=== PATIENT | female | born 1980 | race Caucasian/White ===

== ENCOUNTER 2017-08-16 14:34 | Emergency (ER) | payer BC ==
[2017-08-16 15:49] LABS: #Lymphocytes 1.9 thou/uL (1.20-3.40); #Monocytes 0.6 thou/uL (0.11-0.59); %Basophils 0.3 % (0.0-1.0); %Eosinophils 0.4 % (0.0-10.0); %Lymphocytes 21.7 % (21.0-51.0); %Monocytes 6.6 % (0.0-10.0); %Neutrophils 70.9 % (42.0-75.0); Mean Corpuscular HGB CONC 33.7 g/dL (32.0-36.0); Mean Corpuscular Hemoglobin 28.8 pg (27.0-31.0); Mean Corpuscular Volume 85.2 fl (81.0-99.0); Mean Platelet Volume 7.5 fL (7.4-10.4); Platelet Count 238 thou/uL (130-400); RBC Distribution Width 12.2 % (11.5-14.5); Red Blood Cell (RBC) Count 3.83 mill/uL (4.20-5.40); White Blood Cell (WBC) Count 8.5 thou/uL (4.8-10.8)
[2017-08-16 16:16] LABS: ALT (SGPT) 21 U/L (8-55); AST (SGOT) 19 U/L (5-34); Albumin 3.6 g/dL (3.5-5.0); Alkaline Phosphatase 94 U/L (40-150); Anion Gap 11 mmol/L (10-20); BUN (Urea Nitrogen) 9 mg/dL (7.0-18.7); Bilirubin, Total 0.5 mg/dL (0.2-1.2); CK (CPK) 36 U/L (29-168); Calc. Creatinine Clearance 0 mL/min (70-130); Calcium 9.1 mg/dL (7.8-10.44); Carbon Dioxide 24 mmol/L (22-29); Chloride 106 mmol/L (98-107); Estimated GFR-MDRD Greater than 90; Globulin 2.9 g/dL (2.4-3.5); Glucose 86 mg/dL (70-105); Potassium 3.9 mmol/L (3.5-5.1); Protein, Total 6.5 g/dL (6.0-8.3); Sodium 137 mmol/L (136-145)
[2017-08-16 16:20] LABS: CKMB 0.4 ng/mL (0-6.6); Troponin I Less than 0.010 ng/mL (< 0.028)
--- NOTE | 2017-08-17 09:27 | PRG ---
DATE OF SERVICE: 08/16/2017 INTERPRETATION OF MONITORING STRIP CHIEF COMPLAINT: Palpitations. HISTORY OF PRESENT ILLNESS: The patient was seen in the emergency department by Dr. Gabriel for the abo ve-mentioned complaint. While there, she was placed on the monitor. She had no OB complaints whatsoever. NST INTERPRETATION: Baseline 140s, moderate variability, positive accels, no decels. TOCO: No contractions. ASSESSMENT AND PLAN: A G7, P6 at 28 weeks with a reactive NST. Management per Dr. Gabriel with follow up with Dr. Fofana as needed.
--- NOTE | 2017-08-19 16:08 | EKG ---
Test Reason : CHEST PAIN Blood Pressure : / mmHG Vent. Rate : 094 BPM Atrial Rate : 094 BPM P-R Int : 130 ms QRS Dur : 096 ms QT Int : 358 ms P-R-T Axes : 034 040 022 degrees QTc Int : 447 ms Normal sinus rhythm Incomplete right bundle branch block Borderline ECG Confirmed by MASON GARY ([id number]), supervising editor news reel LION CARRINGTON ([id number]) on 08/19/2017 4:08:23 PM Referred By: Confirmed By:MASON GARY
== END 2017-08-16 17:38 | disposition home or self-care (01) ==
LOC: ERS 14:34
DX: O09.512 Supervision of elderly primigravida, second trimester (principal); O99.89 Other specified diseases and conditions complicating pregnancy, childbirth and the puerperium; R00.2 Palpitations; I10 Essential (primary) hypertension; Z79.899 Other long term (current) drug therapy; Z3A.28 28 weeks gestation of pregnancy
CPT/HCPCS: 59025; 80053; 82550; 82553; 84443; 84484; 85025; 93005; 96360